=== PATIENT | female | born 1990 | race Caucasian/White ===

== ENCOUNTER 2017-11-16 05:14 | Day surgery (SDC) | payer OTHER | END 2017-11-16 20:15 | disposition home or self-care (01) | LOC: CIR.AMB 05:14 | DX: N84.0 Polyp of corpus uteri (principal) ==

== ENCOUNTER 2021-08-02 09:48 | Inpatient (IN) | payer OTHER ==
[~2021-08-02] VITALS: Ht 185.4 cm; Wt 149.7 kg
[2021-08-02] MEDS ORDERED: PRENATAL 19 CH1 EAC1 (09:57)
--- NOTE | 2021-08-02 09:58 | NUR ---
SE RECIBE PTE ALERTA Y ORIENTADA ACOMPANADA DE [place]. REFIERE TENER 13 SEMANAS DE EMBARAZO, INDICA AL LEVANTARSE EN LA MANANA SINTIO DESCARGA ABUNDANTE DE FLUIDO PASCUAL Y POCO DESPUES SANGRADO VAGINAL ACOMPANADO DE COAGULOS. REFIERE TENER DOLOR PELVICO, CALIFICADO UN 5/10 EN ESCALA NUMERICA. SE MONITOREAN S/V Y SE COLOCA PTE EN OBSERVACION.
--- NOTE | 2021-08-02 10:35 | NUR ---
PACIENTE EVALUADA POR . SE LE ORIENTA OSBRE TYRATAMEINTO A SEGUIR. SE EXTRAE MUESTRAS DE LABORATORIO. SE MANTIENE BAJO OBSERVACION POR CAMBIOS.
== END 2021-08-03 14:35 | disposition home or self-care (01) | DRG 807 ==
LOC: ER 09:48 → OB/GYN 17:25 → O/R 08-03 12:18
PROVIDERS: ADMIT Obstetrics & Gynecology; ATTEND Obstetrics & Gynecology
PROC: 10E0XZZ Delivery of Products of Conception, External Approach (ICD-10-PCS; principal; 2021-08-02)
PROC: 10D17Z9 Manual Extraction of Products of Conception, Retained, Via Natural or Artificial Opening (ICD-10-PCS; 2021-08-02)
PROC: 3E0P7VZ Introduction of Hormone into Female Reproductive, Via Natural or Artificial Opening (ICD-10-PCS; 2021-08-02)
PROC: BU4CZZZ Ultrasonography of Uterus and Ovaries (ICD-10-PCS; 2021-08-02)
PROC: 4A1HXCZ Monitoring of Products of Conception, Cardiac Rate, External Approach (ICD-10-PCS; 2021-08-02)
PROC: BY4FZZZ Ultrasonography of Third Trimester, Single Fetus (ICD-10-PCS; 2021-08-02)
DX: O03.4 Incomplete spontaneous abortion without complication (principal); Z37.1 Single stillbirth; O03.1 Delayed or excessive hemorrhage following incomplete spontaneous abortion; O36.80X0 Pregnancy with inconclusive fetal viability, not applicable or unspecified; O26.851 Spotting complicating pregnancy, first trimester; Z3A.13 13 weeks gestation of pregnancy; Z20.822 Contact with and (suspected) exposure to COVID-19; B95.1 Streptococcus, group B, as the cause of diseases classified elsewhere; B96.29 Other Escherichia coli [E. coli] as the cause of diseases classified elsewhere; B95.61 Methicillin susceptible Staphylococcus aureus infection as the cause of diseases classified elsewhere

== ENCOUNTER 2022-01-21 11:43 | Inpatient (IN) | payer OTHER ==
[~2022-01-21] VITALS: Ht 185.4 cm; Wt 150.6 kg
[~2022-01-21 11:43] MED LIST: PRENATAL 19 CH1 EAC1
== END 2022-01-22 09:29 | disposition home or self-care (01) | DRG 819 ==
LOC: LDR 11:43
PROVIDERS: ADMIT Obstetrics & Gynecology; ATTEND Obstetrics & Gynecology
PROC: 4A1HXCZ Monitoring of Products of Conception, Cardiac Rate, External Approach (ICD-10-PCS; 2022-01-21)
PROC: 0UVC7ZZ Restriction of Cervix, Via Natural or Artificial Opening (ICD-10-PCS; principal; 2022-01-21 16:00)
DX: O34.31 Maternal care for cervical incompetence, first trimester (principal); Z3A.13 13 weeks gestation of pregnancy; Z20.822 Contact with and (suspected) exposure to COVID-19

== ENCOUNTER 2022-01-31 18:39 | Inpatient (IN) | payer OTHER ==
[~2022-01-31] VITALS: Ht 185.4 cm; Wt 147.0 kg
[2022-01-31] MEDS ORDERED: CONCEPT OB CAP1 EACH PO (20:07)
== END 2022-02-02 10:34 | disposition home or self-care (01) | DRG 805 ==
LOC: ER 18:39 → LDR 23:56 → OB/GYN 02-01 14:45
PROVIDERS: ADMIT Obstetrics & Gynecology; ATTEND Obstetrics & Gynecology
PROC: BY4FZZZ Ultrasonography of Third Trimester, Single Fetus (ICD-10-PCS; 2022-01-31)
PROC: 4A1HXCZ Monitoring of Products of Conception, Cardiac Rate, External Approach (ICD-10-PCS; 2022-01-31)
PROC: 10E0XZZ Delivery of Products of Conception, External Approach (ICD-10-PCS; principal; 2022-02-01)
PROC: 3E0P7VZ Introduction of Hormone into Female Reproductive, Via Natural or Artificial Opening (ICD-10-PCS; 2022-02-01)
PROC: 3E033VJ Introduction of Other Hormone into Peripheral Vein, Percutaneous Approach (ICD-10-PCS; 2022-02-01)
PROC: 3E0DXGC Introduction of Other Therapeutic Substance into Mouth and Pharynx, External Approach (ICD-10-PCS; 2022-02-01)
DX: O42.012 Preterm premature rupture of membranes, onset of labor within 24 hours of rupture, second trimester (principal); O41.1230 Chorioamnionitis, third trimester, not applicable or unspecified; Z37.1 Single stillbirth; O32.1XX0 Maternal care for breech presentation, not applicable or unspecified; Z20.822 Contact with and (suspected) exposure to COVID-19; Z3A.16 16 weeks gestation of pregnancy